=== PATIENT | male | born 1975 | race Two or more races ===

== ENCOUNTER 2024-05-04 06:00 | Day surgery (SDC) | payer OTHER ==
[2024-05-04] MEDS ORDERED: MEPERIDINE HCL/PF 50 MG/ML VIAL IV ONE (07:30)
[2024-05-04] MEDS ORDERED: MIDAZOLAM HCL/PF 5 MG/ML VIAL IV ONE (07:30)
[2024-05-04] MEDS ORDERED: DIPHENHYDRAMINE HCL 50 MG/ML VIAL 1ML IV ONE ×2 (07:30→10:00)
[2024-05-04] MEDS ORDERED: MIDAZOLAM HCL 2 MG/2 ML VIAL IV ONE (10:00)
[2024-05-04] MEDS ORDERED: FentaNYL CITRATE/PF 50MCG/ML 2ML VIAL IJ ONE (10:00)
== END 2024-05-04 10:40 | disposition home or self-care (01) ==
LOC: AMB-ENDOS 06:00
PROVIDERS: ATTEND Surgery
DX: K63.5 Polyp of colon (principal); D12.0 Benign neoplasm of cecum; D12.1 Benign neoplasm of appendix; R19.5 Other fecal abnormalities